=== PATIENT | male | born 1955 | race Caucasian/White ===

== ENCOUNTER 2021-05-15 09:50 | Emergency (ER) | payer MEDICARE, OTHER ==
[~2021-05-15] VITALS: Ht 170.2 cm; Wt 68.0 kg
[2021-05-15] MEDS ORDERED: ALLOPURINOL 10100 M3 PO (10:07)
[2021-05-15] MEDS ORDERED: HYDROCODON-ACE1 EAC7 PO (11:22)
[2021-05-15 12:41] VITALS: BP 169/78
== END 2021-05-15 12:43 | disposition home or self-care (01) ==
LOC: M.ERS 09:50
DX: M25.511 Pain in right shoulder (principal); Z90.49 Acquired absence of other specified parts of digestive tract; Z88.0 Allergy status to penicillin; W18.30XA Fall on same level, unspecified, initial encounter; Y93.89 Activity, other specified; Y92.89 Other specified places as the place of occurrence of the external cause; Y99.8 Other external cause status